=== PATIENT | male | born 1975 | race Caucasian/White ===

== ENCOUNTER 2024-05-02 14:10 | Emergency (ER) | payer BC, SELFPAY ==
[2024-05-02 14:19] VITALS: BP 153/86; PULSE 106; RESP 20; TEMP 36.8; O2SAT 96
--- NOTE | 2024-05-02 14:24 | ED.SKABFB ---
HPI - Skin/Abscess/Foreign Bdy General Chief complaint: Skin/Abscess/Foreign Body Stated complaint: RASH Source: patient Mode of arrival: ambulatory Limitations: no limitations History of Present Illness HPI narrative: 48-year-old male presented complaint of rash to bilateral forearms over past 2 days. States he believes he was in contact with poison deonna. He has been using calamine lotion. Denies lip, tongue, or throat swelling, shortness of breath or wheezing. Denies changes to soap, detergent, lotion, or any other exposures. No one else in the house or any contacts with similar symptoms. Related Data Allergies Allergy/AdvReac Type Severity Reaction Status Date / Time No Known Allergies Allergy Unverified 11/10/14 10:37 Review of Systems Review of Systems: CONSTITUTIONAL: Denies body aches, fever, chills, or sweats. EYES: Denies visual changes, redness, or discharge. ENT: Denies rhinorrhea, congestion CARDIOVASCULAR: Denies chest pain, palpitations, or edema. RESPIRATORY: Denies cough or dyspnea. GASTROINTESTINAL: Denies abdominal pain, nausea, vomiting, or diarrhea. SKIN: Reports rash to arms MUSCULOSKELETAL: Denies back pain, joint pain, or myalgia. NEUROLOGIC: Denies headache, numbness, tingling, or weakness. PMFSH Comments At time of signature, I have reviewed and agree with nursing past medical, surgical, social and family history unless otherwise noted. Please see nursing chart for further information. There is no relevant family history pertinent to the presenting complaint Exam Narrative: GENERAL: Well-appearing EYES: conjunctivae clear, and EOMI. ENT: Mucous membranes moist. Oropharynx without edema, erythema or lesions. NECK: Supple. No lymphadenopathy CHEST: Clear to auscultation. HEART: Regular rate and rhythm. SKIN: Warm, dry. Bilateral arm so scattered patches of vesicles on an erythematous base consistent with contact dermatitis. NEURO: Alert and oriented x3. Course Course Emergency Course: Patient is aware of diagnosis, understands and agrees to treatment plan. Anticipatory guidance given. Patient agrees to follow-up as directed and is aware of reasons to seek care at the emergency department. Portions of this record may have been created with voice recognition software Level of Care: Express Care Visit Vital Signs Vital signs: Vital Signs Temperature 98.2 F 05/02/24 14:19 Pulse Rate 106 H 05/02/24 14:19 Respiratory Rate 20 05/02/24 14:19 Blood Pressure 153/86 H 05/02/24 14:19 Pulse Oximetry 96 05/02/24 14:19 Oxygen Delivery Room Air 05/02/24 14:19 Temperature 98.2 F 05/02/24 14:19 Pulse Rate 106 H 05/02/24 14:19 Respiratory Rate 20 05/02/24 14:19 Blood Pressure 153/86 H 05/02/24 14:19 Pulse Oximetry 96 05/02/24 14:19 Oxygen Delivery Room Air 05/02/24 14:19 Reviewed MDM - Skin/Abscess/Foreign Bdy MDM Narrative Medical decision making narrative: Discussed physical exam findings. Advised supportive measures and signs/symptoms to go to the ER. Pt is appropriate for outpt treatment and f/u. Instructed patient to go to nearest ER immediately for any worsening symptoms including but not limited to: fever, spreading rash, pain, sore throat, headache, dizziness, chest pain, trouble breathing, or any symptoms concerning to the patient. Differential Diagnosis Differential diagnosis: Likely abscess of skin or subcutaneous tissue, urticaria, herpes zoster, cellulitis and contact dermatitis Discharge Plan Discharge Clinical Impression: Contact dermatitis Patient Disposition: Home, Self-Care Condition: Stable Instructions: Antibiotic Form, Poison Deonna (ED) Additional Instructions: Take medication as directed Benadryl as needed for itching Wash the area with gentle soap and water only. Use skin cream such as hydrocortisone, Benadryl, or calamine as needed to reduce itchiness Avoid scratching when possible to prevent worsen
== END 2024-05-02 14:33 | disposition home or self-care (01) ==
PROVIDERS: Emergency Provider Nurse Practitioner Family
DX: L25.9 Unspecified contact dermatitis, unspecified cause (principal)
CPT/HCPCS: 99203; G0463

== ENCOUNTER 2024-06-27 11:55 | Emergency (ER) | payer BC, SELFPAY ==
--- NOTE | 2024-06-27 12:01 | ED.SKABFB ---
HPI - Skin/Abscess/Foreign Bdy General Chief complaint: Skin/Abscess/Foreign Body Stated complaint: RASH Source: patient and RN notes reviewed Mode of arrival: ambulatory Limitations: no limitations History of Present Illness HPI narrative: Patient is a 48-year-old male who presents to the [facility] with complaints of rash to bilateral arms. Patient states that he was cutting down trees on Wednesday and believes that he may have gotten into some poison corinne or oak. He states that the rash itches at times. It has continued to spread on the arms. He denies recent fevers. States that the rash has been contained to the arms and is not present at this time to any other part of his body. Related Data Allergies Allergy/AdvReac Type Severity Reaction Status Date / Time No Known Allergies Allergy Unverified 06/27/24 11:59 Review of Systems Review of Systems: CONSTITUTIONAL: Denies fever, chills, or sweats. EYES: Denies visual changes, redness, or discharge. ENT: Denies otalgia and sore throat CARDIOVASCULAR: Denies chest pain, palpitations, or edema. RESPIRATORY: Denies cough or dyspnea. GASTROINTESTINAL: Denies abdominal pain, nausea, vomiting, or diarrhea. GENITOURINARY: Denies dysuria or hematuria. SKIN: Reports rash and itching. MUSCULOSKELETAL: Denies back pain, joint pain, or myalgia. NEUROLOGIC: Denies headache, numbness, or weakness. Pertinent positives per HPI. PMFSH Comments At the time of my signature, I reviewed and agree with the nursing past medical, surgical, social, and family history. There is no relevant family history pertinent to the patient complaint. Exam Narrative: GENERAL: This is a well-nourished, well-developed patient, in no apparent distress. HEAD: normocephalic, atraumatic. EYES: PERRL. Sclera clear/white. Vision is grossly intact. EARS: External ears normal, auditory canals clear and without drainage, TMs normal without perforation. Hearing grossly intact. NOSE: External nose normal with no obvious nasal discharge, nares without redness, no rhinorrhea. THROAT: Mucous membranes moist, posterior pharynx clear. NECK: Neck supple, non-tender without lymphadenopathy, masses or thyromegaly. CARDIOVASCULAR: Regular rate and rhythm without murmurs, gallops, or rubs. RESPIRATORY: Clear to auscultation. Breath sounds equal bilaterally. No wheezes, rales, or rhonchi. GASTROINTESTINAL: Abdomen soft, non-tender, nondistended. Bowel sounds are active. No hepato-splenomegaly, or palpable masses. No guarding. SKIN: warm, intact . Fascicular rash to bilateral arms, consistent with poison corinne/oak. NEURO: awake, alert, and oriented to person, place and time. There were no obvious focal neurologic abnormalities. EXTREMITIES: No clubbing, cyanosis, or edema. No joint tenderness, effusion, or edema noted. BACK: Nontender without deformity or crepitance. No flank tenderness. Course Course Level of Care: Express Care Visit Vital Signs Vital signs: Vital Signs Temperature 98.6 F 06/27/24 12:05 Pulse Rate 86 06/27/24 12:05 Respiratory Rate 16 06/27/24 12:05 Blood Pressure 136/92 H 06/27/24 12:05 Pulse Oximetry 99 06/27/24 12:05 Temperature 98.6 F 06/27/24 12:05 Pulse Rate 86 06/27/24 12:05 Respiratory Rate 16 06/27/24 12:05 Blood Pressure 136/92 H 06/27/24 12:05 Pulse Oximetry 99 06/27/24 12:05 Reviewed MDM - Skin/Abscess/Foreign Bdy MDM Narrative Medical decision making narrative: Prevention is always better than treatment. Learn to identify poison corinne, oak, and sumac and avoid it. Wear long sleeves, long pants, shoes, and socks. If you touched the plant, try to keep your hands away from your eyes, mouth, and face. Wash the skin thoroughly with soap and cool water as soon as possible. Scrub under the fingernails with a brush to prevent spreading of the resin to other parts of the body by touching or scratching. Remember to wash any clothing with soap and hot water as th
[2024-06-27 12:05] VITALS: BP 136/92; PULSE 86; RESP 16; TEMP 37; O2SAT 99
== END 2024-06-27 12:10 | disposition home or self-care (01) ==
PROVIDERS: Emergency Provider Nurse Practitioner
DX: L25.5 Unspecified contact dermatitis due to plants, except food (principal)
CPT/HCPCS: 99213; G0463